=== PATIENT | male | born 1995 | race Caucasian/White ===

== ENCOUNTER 2023-03-28 12:24 | Emergency (ER) | payer OTHER ==
[~2023-03-28] VITALS: Ht 180.3 cm; Wt 79.4 kg
[2023-03-28] MEDS ORDERED: Seroquel Xr50 MG (12:34)
[2023-03-28] MEDS ORDERED: IBUP800 PO (14:21)
[2023-03-28 14:37] VITALS: BP 132/70
== END 2023-03-28 14:39 ==
LOC: ER 12:24
DX: S53.401A Unspecified sprain of right elbow, initial encounter (principal); S63.501A Unspecified sprain of right wrist, initial encounter; M25.511 Pain in right shoulder; Z02.89 Encounter for other administrative examinations; Z79.899 Other long term (current) drug therapy; X58.XXXA Exposure to other specified factors, initial encounter
CPT/HCPCS: 73030; 73070; 73100; 99283-25; A9270